=== PATIENT | male | born 1975 ===

== ENCOUNTER 2017-02-04 12:39 | Emergency (ER) | payer SELFPAY ==
--- NOTE | 2017-02-07 12:41 | ER ---
ADMIT: 02/04/2017 RM/LOC: ER [facility] MR#: [id number] [id number] MICHELL CLAROS [address] [place] [id number] Emergency Room Report SEX: M AGE: 41 : 1975 DATE: 02/04/2017 HISTORY: The patient is a 41-year-old male, who presents to emergency room with abdominal pain. He said it started suddenly at 10:00 a.m., still present. He points to the lower aspect of his abdomen, right and left. He says he also felt like he needed to throw up. He is unable to poop, so that is another issue he has that has compounded his symptoms. REVIEW OF SYSTEMS: Otherwise negative. PAST MEDICAL HISTORY: Seasonal allergies, migraine, and acid reflex. He has had an umbilical hernia repair and finger problem. MEDICATIONS: 1. Excedrin. 2. Prilosec. SOCIAL HISTORY: He is a smoker of half a pack a day. PHYSICAL EXAMINATION: VITAL SIGNS: On examination, blood pressure 155/97, heart rate is 76, respirations 40, temp is 96.7, and O2 sats 97%. GENERAL: Mildly anxious. HEENT: Normal inspection. NECK: Supple. RESPIRATIONS: No distress. ABDOMEN: Lower aspect of the abdomen, right and left with discomfort and tenderness. No distention. No rigidity present. The rest of the examination is within normal limits. LABORATORY DATA: White count 17.3 and hemoglobin 13.9. Chemistry; creatinine is 1.4 with a CRP of 0.54, GFR of 63. We did an x-ray which did show some stool in the right lower quadrant. We did do a CT scan just to rule out the fact that his white count was elevated to make sure he did not have a hot appy. He has a 2.5 mm stone at the UVJ with mild hydronephrosis on the left side. CLINICAL IMPRESSION: Renal colic, hydronephrosis. Given Cipro and tramadol for home use, but while in the ER, he started with fentanyl, did not do much for him and Zofran, then we went to morphine and just before he goes home, Toradol 30 mg IV. The patient to follow up with With, city Call and instructions given on care while he has a renal stone. ANGEL Silverman / Steve Jackson MD / modl JOB #: [id number] CC: Steve Jackson MD, Attending Physician ADMIT: 02/04/2017 RM/LOC: ER [facility] MR#: [id number] [id number] MICHELL CLAROS [address] [place] [address] Emergency Room Report SEX: M AGE: 41 : 1975 Nelson Harrison MD, Family Physician
== END 2017-02-04 17:05 | disposition home or self-care (01) ==
LOC: ER 12:39
DX: N13.2 Hydronephrosis with renal and ureteral calculous obstruction (principal); R10.31 Right lower quadrant pain; R10.32 Left lower quadrant pain; F17.210 Nicotine dependence, cigarettes, uncomplicated; Z79.899 Other long term (current) drug therapy